=== PATIENT | male | born 1945 | race Caucasian/White ===

== ENCOUNTER 2023-09-01 15:36 | Inpatient (IN) | payer MEDICARE, OTHER ==
[~2023-09-01] VITALS: Ht 188 cm; Wt 98.5 kg
[2023-09-01] MEDS ORDERED: IPRATROPIUM BROM 0.5 MG/2.5ML INH SOL NEB ONE (16:00)
[2023-09-01] MEDS ORDERED: ALBUTEROL MEDNEB 2.5 mg/3ml NEB NEB ONE (16:00)
[2023-09-01] MEDS ORDERED: DexAMETHasone SOD PHOS 10MG/1ML VIAL INJ IM ONE (16:00)
[2023-09-01 16:19] LABS: Basophils # (auto) 0 10 ^3/uL (0-0.2); Basophils % (auto) 0.5 % (0.0-2.0); Eosinophils # (auto) 0 10 ^3/uL (0-0.8); Eosinophils % (auto) 0.9 % (0.0-7.0); Hematocrit 48.2 % (41.0-53.0); Hemoglobin 16.1 g/dL (13.5-17.5); Lymphocytes # (auto) 1.3 10 ^3/uL (0.4-5.4); Lymphocytes % (auto) 24.2 % (10.0-50.0); Mean Corpuscular Hemoglobin 30.3 pg (28.0-32.0); Mean Corpuscular Hgb Conc. 33.4 g/dL (32.0-36.0); Mean Corpuscular Volume 90.9 fL (80.0-100.0); Monocytes # (auto) 0.8 10 ^3/uL (0-1.3); Monocytes % (auto) 13.9 % (0.0-12.0); Neutrophils # (auto) 3.3 10 ^3/uL (1.6-8.6); Neutrophils % (auto) 60.5 % (37.0-80.0); Nucleated Red Blood Cells % 0.4 %; Red Blood Cells 5.31 10^6/uL (4.5-5.90); Red Cell Distribution Width 12.8 % (11.8-14.3); White Blood Cell 5.5 10^3/uL (4.4-10.8)
[2023-09-01 16:32] LABS: INR 1.13 (0.9-1.15); Partial Thromboplastin Time 37.3 SEC (24.5-34.5); Prothrombin Time 11.8 sec (9.3-11.8)
[2023-09-01 16:37] LABS: Alanine Aminotransferase 22 U/L (7-40); Albumin 4.9 g/dL (3.2-4.8); Alkaline Phosphatase 66 U/L (46-116); Anion Gap 7 (5-15); Aspartate Aminotransferase 22 U/L (13-40); BUN/Creatinine Ratio 14.1 (10.0-20.0); Bilirubin, Total 0.3 mg/dL (0.2-1.0); Blood Urea Nitrogen 12 mg/dL (9-23); Carbon Dioxide 27 mmol/L (20-30); Chloride 93 mmol/L (98-107); Glucose 165 mg/dL (74-106); Lactic Acid w/Reflex 2.2 mmol/L (0.4-2.0); Potassium 3.9 mmol/L (3.5-5.1); Sodium 127 mmol/L (136-145); Total Protein 6.9 g/dL (5.7-8.2)
[2023-09-01] MEDS ORDERED: SODIUM CHLORIDE 0.9% 1,000 ML IV ONE (17:30)
[2023-09-01 18:00] VITALS: PULSE 84; RESP 16; O2SAT 96
[2023-09-01 19:30] VITALS: PULSE 88; RESP 17; O2SAT 97
[2023-09-01 21:12] LABS: Urine Bacteria NONE SEEN /hpf (None Seen); Urine Blood Negative /uL (Negative); Urine Clarity Clear (Clear); Urine Color Yellow (Yellow); Urine Mucus FEW (None Seen); Urine Protein, UAD TRACE (Negative); Urine Specific Gravity 1.015 (1.001-1.035); Urine Urobilinogen Normal (Negative); Urine WBC 4 /hpf (0 - 3); Urine pH 5.5 (5.0-8.0)
[2023-09-01] MEDS ORDERED: LISINOPRIL 20 MG TAB PO ONE (21:45)
[2023-09-01] MEDS ORDERED: metFORMIN HYDROCHLORIDE 500 MG TAB PO ONE (21:45)
[2023-09-01] MEDS ORDERED: NORTRIPTYLINE HCL 25 MG CAP PO ONE (21:45)
[2023-09-01] MEDS ORDERED: NITROGLYCERIN 0.4 MG SL TAB SL PRN (22:30)
[2023-09-01] MEDS ORDERED: MORPHINE SULFATE INJ 2 MG/ml SYRG IV PRN (22:30)
[2023-09-01] MEDS ORDERED: DEXTROSE (50%) 50ML SYRG IV PRN (22:30)
[2023-09-01 22:47] VITALS: BP 129/54; PULSE 88; RESP 14; TEMP 97.7; O2SAT 98
[2023-09-01] MEDS: APIXABAN 5 MG TAB PO SCH (22:48)
[2023-09-01] MEDS: SODIUM CHLORIDE 0.9% 1,000 ML IV SCH (22:52)
[2023-09-02] VITALS (11 sets, daily range): BP systolic 110–155; BP diastolic 69–169; PULSE 66–109; RESP 16–20; TEMP 36.9; O2SAT 94–100
[2023-09-02] MEDS: ACETAMINOPHEN 325 MG TAB PO PRN (03:20)
[2023-09-02] MEDS: ALBUTEROL MEDNEB 2.5 mg/3ml NEB NEB PRN ×2 (03:25→18:49)
[2023-09-02 06:19] LABS: Basophils # (auto) 0 10 ^3/uL (0-0.2); Basophils % (auto) 0.3 % (0.0-2.0); Eosinophils # (auto) 0 10 ^3/uL (0-0.8); Eosinophils % (auto) 1.3 % (0.0-7.0); Hematocrit 40.3 % (41.0-53.0); Hemoglobin 13.5 g/dL (13.5-17.5); Lymphocytes # (auto) 1.2 10 ^3/uL (0.4-5.4); Lymphocytes % (auto) 34.8 % (10.0-50.0); Mean Corpuscular Hemoglobin 30.7 pg (28.0-32.0); Mean Corpuscular Hgb Conc. 33.6 g/dL (32.0-36.0); Mean Corpuscular Volume 91.3 fL (80.0-100.0); Monocytes # (auto) 0.6 10 ^3/uL (0-1.3); Monocytes % (auto) 17.9 % (0.0-12.0); Neutrophils # (auto) 1.6 10 ^3/uL (1.6-8.6); Neutrophils % (auto) 45.7 % (37.0-80.0); Nucleated Red Blood Cells % 0.2 %; Red Blood Cells 4.41 10^6/uL (4.5-5.90); Red Cell Distribution Width 12.8 % (11.8-14.3); White Blood Cell 3.5 10^3/uL (4.4-10.8)
[2023-09-02 06:47] LABS: Alanine Aminotransferase 17 U/L (7-40); Albumin 4.1 g/dL (3.2-4.8); Alkaline Phosphatase 51 U/L (46-116); Anion Gap 10 (5-15); Aspartate Aminotransferase 14 U/L (13-40); BUN/Creatinine Ratio 8.8 (10.0-20.0); Blood Urea Nitrogen 7 mg/dL (9-23); Calcium 8.7 mg/dL (8.7-10.4); Carbon Dioxide 24 mmol/L (20-30); Chloride 96 mmol/L (98-107); Glucose 217 mg/dL (74-106); Potassium 3.5 mmol/L (3.5-5.1); Sodium 130 mmol/L (136-145)
[2023-09-02 06:48] LABS: Bilirubin, Total 0.2 mg/dL (0.2-1.0); Total Protein 6.1 g/dL (5.7-8.2)
[2023-09-02] MEDS: InsuLIN REG 1unit/0.01ml Soln (100units/ml) SC SCH ×4 (07:00→19:46)
[2023-09-02] MEDS: ACCU-CHEK COMFORT CURVE STRIP VI SCH ×4 (07:23→19:58)
[2023-09-02] MEDS ORDERED: LISI20TA56 PO (07:37)
[2023-09-02] MEDS ORDERED: SIMV40TA18 PO (07:37)
[2023-09-02] MEDS ORDERED: APIX5TAB PO (07:37)
[2023-09-02] MEDS ORDERED: NORT50CA57 PO (07:37)
[2023-09-02] MEDS ORDERED: DRON400T PO (07:37)
[2023-09-02] MEDS ORDERED: METF-370 PO (07:37)
[2023-09-02] MEDS: APIXABAN 5 MG TAB PO SCH ×2 (09:40→21:28)
[2023-09-02] MEDS ORDERED: LISINOPRIL 20 MG TAB PO SCH (10:00)
[2023-09-02 11:46] LABS: Triglycerides 82 mg/dL (< 150)
[2023-09-02 11:47] LABS: LDL Cholesterol 31 mg/dL (< 100)
[2023-09-02 11:48] LABS: Cholesterol 78 mg/dL (< 200); HDL Cholesterol 29 mg/dL (40-59)
[2023-09-02] MEDS: SODIUM CHLORIDE 0.9% 1,000 ML IV SCH (12:43)
[2023-09-02] MEDS ORDERED: PANTOPRAZOLE 40 MG TAB PO ONE (14:45)
[2023-09-02] MEDS ORDERED: AZITHROMYCIN 250 MG TAB PO ONE (14:45)
[2023-09-02] MEDS: IPRATROPIUM BROM 0.5 MG/2.5ML INH SOL NEB SCH (18:49)
[2023-09-02] MEDS: LISINOPRIL 20 MG TAB PO SCH (21:25)
[2023-09-02] MEDS: ATORVASTATIN 20 MG TAB PO SCH (21:27)
[2023-09-02] MEDS: NORTRIPTYLINE HCL 10 MG CAP PO SCH (21:30)
[2023-09-02] MEDS ORDERED: ATORVASTATIN 20 MG TAB PO SCH (22:00)
[2023-09-03] VITALS (14 sets, daily range): BP systolic 131–160; BP diastolic 71–89; PULSE 76–94; RESP 16–21; TEMP 97.7–98.1; O2SAT 95–100
[2023-09-03] MEDS: InsuLIN REG 1unit/0.01ml Soln (100units/ml) SC SCH ×2 (05:36→10:43)
[2023-09-03] MEDS: ACCU-CHEK COMFORT CURVE STRIP VI SCH (05:37)
[2023-09-03] MEDS: ALBUTEROL MEDNEB 2.5 mg/3ml NEB NEB PRN ×3 (06:56→18:55)
[2023-09-03] MEDS: IPRATROPIUM BROM 0.5 MG/2.5ML INH SOL NEB SCH ×3 (06:56→18:55)
[2023-09-03 07:33] LABS: Anion Gap 6 (5-15); Carbon Dioxide 27 mmol/L (20-30); Chloride 97 mmol/L (98-107); Potassium 3.8 mmol/L (3.5-5.1); Sodium 130 mmol/L (136-145)
[2023-09-03 07:34] LABS: Calcium 8.4 mg/dL (8.5-10.1)
[2023-09-03 07:38] LABS: Glucose 136 mg/dL (74-106)
[2023-09-03 07:39] LABS: BUN/Creatinine Ratio 11.7 (10.0-20.0); Blood Urea Nitrogen 7 mg/dL (9-23)
[2023-09-03] MEDS: APIXABAN 5 MG TAB PO SCH ×2 (10:30→21:48)
[2023-09-03] MEDS: PANTOPRAZOLE 40 MG TAB PO SCH (10:30)
[2023-09-03] MEDS: AZITHROMYCIN 250 MG TAB PO SCH (10:30)
[2023-09-03] MEDS: LISINOPRIL 20 MG TAB PO SCH (18:03)
[2023-09-03] MEDS: ATORVASTATIN 20 MG TAB PO SCH (21:48)
[2023-09-03] MEDS: ACETAMINOPHEN 325 MG TAB PO PRN (21:48)
[2023-09-03] MEDS: hydrALAZINE HCL 20 MG/ML VL IV PRN (21:49)
[2023-09-03] MEDS: NORTRIPTYLINE HCL 10 MG CAP PO SCH (22:00)
[2023-09-03] MEDS: ONDANSETRON HCL 4 MG/2 ML VIAL IV PRN (23:41)
[2023-09-04] VITALS (9 sets, daily range): BP systolic 138–154; BP diastolic 75–83; PULSE 80–116; RESP 16–20; TEMP 36.5; O2SAT 96–99
[2023-09-04] MEDS: ACETAMINOPHEN 325 MG TAB PO PRN (05:46)
[2023-09-04] MEDS: ALBUTEROL MEDNEB 2.5 mg/3ml NEB NEB PRN ×2 (07:03→12:32)
[2023-09-04] MEDS: IPRATROPIUM BROM 0.5 MG/2.5ML INH SOL NEB SCH ×2 (07:03→12:25)
[2023-09-04] MEDS: APIXABAN 5 MG TAB PO SCH (09:22)
[2023-09-04] MEDS: AZITHROMYCIN 250 MG TAB PO SCH (09:23)
[2023-09-04] MEDS: PANTOPRAZOLE 40 MG TAB PO SCH (09:23)
[2023-09-04] MEDS: ONDANSETRON HCL 4 MG/2 ML VIAL IV PRN (09:36)
[2023-09-04] MEDS ORDERED: metFORMIN HYDROCHLORIDE 500 MG TAB PO SCH (10:00)
[2023-09-04] MEDS: hydrALAZINE HCL 20 MG/ML VL IV PRN (12:06)
[2023-09-04 12:41] LABS: COVID19 ANTIGEN SOFIA FIA NEGATIVE (NEGATIVE)
== END 2023-09-04 18:00 | DRG 309 ==
LOC: ER 15:36 → TELE 22:34 → TELE-WESTW 09-02 08:16
PROVIDERS: ADMIT Nurse Practitioner; ATTEND Internal Medicine
DX: I48.20 Chronic atrial fibrillation, unspecified (principal); D68.59 Other primary thrombophilia; E87.1 Hypo-osmolality and hyponatremia; J44.1 Chronic obstructive pulmonary disease with (acute) exacerbation; J45.901 Unspecified asthma with (acute) exacerbation; J44.0 Chronic obstructive pulmonary disease with (acute) lower respiratory infection; I48.0 Paroxysmal atrial fibrillation; Z20.822 Contact with and (suspected) exposure to COVID-19; I10 Essential (primary) hypertension; E11.42 Type 2 diabetes mellitus with diabetic polyneuropathy; J20.9 Acute bronchitis, unspecified; K21.9 Gastro-esophageal reflux disease without esophagitis; E78.5 Hyperlipidemia, unspecified; Z82.49 Family history of ischemic heart disease and other diseases of the circulatory system
CPT/HCPCS: 36415; 71045; 80048; 80053; 80061; 81001; 82962; 83036; 83605; 83880; 84443; 84484; 85025; 85379; 85610; 85730; 87040; 87426; 93005; 93306; 94640; 96360; G0378; J1815; J2405